=== PATIENT | female | born 1960 | race Caucasian/White ===

== ENCOUNTER 2024-12-02 06:10 | Day surgery (SDC) | payer OTHER, SELFPAY ==
[2024-11-19 13:58] VITALS: BMI 45.1
--- NOTE | 2024-12-01 06:34 | W.CON.GYNONC ---
Addendum entered and electronically signed by Mike Salinas MD 12/05/24 16:26:
Date of H&P: 12/02/2024
Original Note:
Consultation
-
Performing Provider: Mike Salinas
Reason for Consultation: Surgery H&P
Chief Complaint
-
endometrial hyperplasia
History of Present Illness
64�year�old�woman�referred�to�me�by�Dr.�Letty�Pacheco She�had�an�office�evaluation�March�1.�Patient�had�not�been�seen�for�3�years.�She�had�expressed�frustration�for�gaining�some
weight�back.�Pap�smear�performed�March�1�was�negative�cytology�and�negative�HPV.�Endometrial�biopsy�showed�no endometrial�tissue�identified�mucus�and�rare�fragments�of�endocervical�glands�present.�Ultrasound�of�the�pelvis�dated�Olamide�
shows�uterus�with�15�mm�thickness,�right�and�left�ovaries�are�2.1�and�2.4�cm.�There�is�no�free�fluid�or�pelvic�collection Patient�underwent�a�D&C�hysteroscopy�and�MyoSure�biopsy�Olamide�.�Pathology�is�consistent�with�endometrial�hyperplasia
without�atypia.�ECC�is�benign.�Endometrial�curetting�shows�benign�endometrium�epithelium. Medical�history�significant�for�anxiety�disorder�and�prediabetes,�additional�problems�include�hypertension,�morbid�obesity,�cyst�of
left�breast,�family�history�of�colonic�polyps�and�postmenopausal�bleeding Past�surgical�history�includes�left�breast�biopsy,�appendectomy,�history�of�umbilical�hernia�repair
Family�history�significant�for�mother�with�lung�cancer�at�67,�sister�with�MS,�maternal�aunt�with�breast�cancer Social�history,�she�is�,�has�2�children,�she�was�a�smoker�but�quit�about�1992,�drinks�alcohol�socially,�denies�drug�or
marijuana�use
Meds:
aspirin�81�mg�tablet 09/24/2024 0 1�p.o.�q.�day atorvastatin�10�mg�tablet 09/24/2024 0 1�p.o.�q.�day escitalopram�10�mg�tablet 09/24/2024 0 1�p.o.�q.�day lisinopril�10�mg�tablet 09/24/2024 0 1�p.o.�q.�day megestrol�40�mg�tablet 09/24/2024 0
1�p.o.�twice�a�day�(BID) metformin�500�mg�tablet 09/24/2024 0 1�p.o.�twice�a�day�(BID)
Medical History
Allergies
Allergies reflect when allergies were last updated in [facility].
doxycycline Allergy (Severe, Verified 11/25/24 09:40)
Rash
halothane Allergy (Severe, Verified 11/25/24 09:54)
HEPATITIS
misoprostol Allergy (Severe, Verified 11/25/24 09:40)
Hives
Sulfa (Sulfonamide Antibiotics) Allergy (Severe, Verified 11/25/24 09:40)
Rash
Physical Exam
Physical Exam
Pelvic�Examination: External�normal�labia,�urethra,�anus.� Vagina:�Normal�mucosa. Cervix:�normal�appearance,�no�discharge. Uterus:�normal�size.� Adnexa:�No�pelvic�mass.� RVE:�no�masses�or�nodularity
General:�Well�developed,�well�nourished�patient.�In�no�acute�distress. Neck:�No�thyromegaly.�No�cervical�lymphadenopathy. Lungs:�Clear�to�auscultation.�Good�air�movement�bilaterally. Cardiac:�Regular�rate.�Regular�rhythm.�No�murmurs�appreciated.
Abdomen:�Abdomen�is�soft.�Non�tender�to�palpation.�Non�distended.�umbilacal�hernia�repair�site Extremities:�No�edema. Hematologic/Lymphatic:�No�palpable�lymphadenopathy. Musculoskeletal:�Normal�range�of�motion.�Strength�and�Tone�are�normal.
Skin:Non�jaundiced.�No�petechia.�No�purpura. Neurologic:�Speech�is�fluent.�Normal�gait�and�station.�Cranial�nerves�intact
Results
-
�[facility]��
����������������������������������[place] [address]��
Patient:�Nick Dejesus���������������������MR#:�[id number]������������
:�1960������Age:�64���Sex:�F������������Visit�Number:�[id number]�����������
Admit�Date:�10/12/24���������������������Patient�Phone:�[phone]������������
Adm�Doctor:�Marilee Salinas������������������Ordered�By:�Marilee Salinas�����������
[facility]:�[facility]���������������������Report�#:�[id number]�����
[address]
[place] [address], ��
Study�#:�[id number]��
��
Category:�MRI��������������������������������������������������������Date�of�Service:�10/12/24��������
������������
Study�Performed:�MR�pelvis�wo/w�con�������������������������������������������������������������������
������������������
��
����������������������������������������REPORT�STATUS:�Signed��
MRI�PELVIS:��
��
HISTORY:�Postmenopausal�bleeding.�Thickened�endometrium�on�sonography.�N95.0��
��
COMPARISON:�Comparison�is�made�with�the�ultrasound�examination�of�Olamide�.��
��
Axial,�coronal�and�sagittal�imaging�was�performed�with�multiple�pulse�sequences.�Imaging�was�
performed�without�and�with�intravenous�administration�of�Clariscan,�20�cc.��
��
UTERUS:��
The�uterus�measures�7.8�cm�in�length,�4.6�cm�in�AP�dimension�and�5.3�cm�in�transverse�dimension.��
The�endometrium�measures�1.0�cm�in�thickness.�The�endometrium�demonstrates�heterogeneous�T1�and�T2�
signal.�Within�the�endometrium�there�is�a�1.4�cm�x�0.7�cm�region�of�relatively�decreased�T2�signal.�
The�endometrium�demonstrates�heterogeneous�enhancement�following�contrast�administration.��
The�myometrium�is�unremarkable�in�appearance.��
��
ADNEXA:��
The�right�ovary�measures�2.0�cm�x�1.6�cm�x�1.6�cm.��
The�left�ovary�measures�1.7�cm�x�1.4�cm�x�2.0�cm.��
The�ovaries�are�unremarkable�in�appearance.��
No�mass�is�seen�in�the�adnexa.�No�free�fluid�is�detected.��
��
LYMPH�NODES:���
No�lymphadenopathy�is�seen�in�the�mesentery�or�retroperitoneum.��
��
Skeletal:���
The�visualized�skeletal�structures�demonstrate�normal�marrow�signal.��
��
CONCLUSION:��
1.�The�endometrium�is�abnormally�thick�for�a�postmenopausal�patient.�Endometrium�measures�1.0�cm�in�
thickness.�The�endometrium�demonstrates�heterogeneous�attenuation�characteristics�and�heterogeneous�
enhancement.�This�raises�suspicion�for�endometrial�carcinoma.�Tissue�sampling�is�recommended.��
2.�The�ovaries�and�adnexa�are�unremarkable�in�appearance.�No�lymphadenopathy�or�free�fluid�is�
detected.��
��
�Act�112�notification:��
��
You�are�receiving�this�notice�as�a�result�of�a�determination�by�your�diagnostic�imaging�service�that
further�discussions�of�your�test�results�are�warranted�and�would�be�beneficial�to�you.��
The�complete�results�of�your�test�or�tests�have�been�or�will�be�sent�to�the�healthcare�practitioner�
that�ordered�the�test�or�tests.�It�is�recommended�that�you�contact�your�healthcare�practitioner�to�
discuss�your�results�as�soon�as�possible.��
��
��
��
��
��
��
Dictated�By:�Kirk�G�Pretty�MD�on�10/15/24�at�918
Comp. Metabolic Panel (14)�-FinalOrdered by:�Blas Field Source:�Blood
Glucose 130High mg/dL 70-99 [facility]
BUN 9 mg/dL 8-27 [facility]
Creat 0.66 mg/dL 0.57-1.00 [facility]
eGFR 98 mL/min/1.73 >59 [facility]
BUN Creat Ratio 14 12-28 [facility]
Sodium 139 mmol/L 134-144 [facility]
Potassium 4.5 mmol/L 3.5-5.2 [facility]
Chloride 102 mmol/L 96-106 [facility]
CO2 18Low mmol/L 20-29 [facility]
Calcium 9.8 mg/dL 8.7-10.3 [facility]
Total Protein 6.8 g/dL 6.0-8.5 [facility]
Albumin 4.5 g/dL 3.9-4.9 [facility]
Globulin 2.3 g/dL 1.5-4.5 [facility]
Total Bili 0.6 mg/dL 0.0-1.2 [facility]
Alk Phos 69 IU/L 44-121 [facility]
AST 16 IU/L 0-40 [facility]
ALT 21 IU/L 0-32 [facility]
Iron and TIBC�-FinalOrdered by:�Blas Field Source:�Blood
Iron Bind.Cap.(TIBC) 311 ug/dL 250-450 [facility]
UIBC 205 ug/dL 118-369 [facility]
IRON 106 ug/dL 27-139 [facility]
Iron Sat Percent 34 % 15-55 [facility]
Vitamin B12 and Folate�-FinalOrdered by:�Blas Field Source:�Blood
B12 361 pg/mL 232-1245 [facility]
Folate (Folic Acid), Serum >20.0 ng/mL >3.0 [facility]
A�serum�folate�concentration�of�less�than�3.1�ng/mL�is
considered�to�represent�clinical�deficiency.
Prothrombin Time (PT)�-FinalOrdered by:�Blas Field Source:�Blood
INR 1.0 0.9-1.2 [facility]
���������������Reference�interval�is�for�non-anticoagulated�patients.
��������������������������������������������������������������������.
���������������Suggested�INR�therapeutic�range�for�Vitamin�K
���������������antagonist�therapy:
������������������Standard�Dose�(moderate�intensity
���������������������������������therapeutic�range):�������2.0�-�3.0
������������������Higher�intensity�therapeutic�range�������2.5�-�3.5
ProTime 11.4 sec 9.1-12.0 [facility]
Cancer Antigen (CA) 125�-FinalOrdered by:�Blas Field Source:�Blood
CA125 17.4 U/mL 0.0-38.1 [facility]�Electrochemiluminescence�Immunoassay�(ECLIA)
���������������������������������������������������������������������.
Values�obtained�with�different�assay�methods�or�kits�cannot�be
used�interchangeably.��Results�cannot�be�interpreted�as�absolute
evidence�of�the�presence�or�absence�of�malignant�disease.
Luteinizing Hormone(LH)�-FinalOrdered by:�Blas Field Source:�Blood
LH 6.2Low mIU/mL 7.7-58.5 [facility]
������������������������������������Adult�Female��������������Range
�������������������������������������Follicular�phase������2.4�-��12.6
�������������������������������������Ovulation�phase������14.0�-��95.6
�������������������������������������Luteal�phase����������1.0�-��11.4
�������������������������������������Postmenopausal��������7.7�-��58.5
FSH�-FinalOrdered by:�Blas Field Source:�Blood
FSH 9.4Low mIU/mL 25.8-134.8 [facility]
������������������������������������Adult�Female�������������Range
�������������������������������������Follicular�phase������3.5�-��12.5
�������������������������������������Ovulation�phase�������4.7�-��21.5
�������������������������������������Luteal�phase����������1.7�-���7.7
�������������������������������������Postmenopausal�������25.8�-�134.8
PTT, Activated�-FinalOrdered by:�Blas Field Source:�Blood
aPTT 24 sec 24-33 [facility]
This�test�has�not�been�validated�for�monitoring�unfractionated�heparin
therapy.�aPTT-based�therapeutic�ranges�for�unfractionated�heparin
therapy�have�not�been�established.�For�general�guidelines�on
Heparin�monitoring,�refer�to�the�[facility]�Directory�of�Services.
TSH reflex to T4F�-FinalOrdered by:�Blas Field Source:�Blood
TSH 1.870 uIU/mL 0.450-4.500 [facility]
Ferritin�-FinalOrdered by:�Blas Field Source:�Blood
Ferritin 113 ng/mL 15-150 [facility]
Impression / Plan
-
This�patient�has�morbid�obesity,�due�to�excess�calories,�has�new�diagnosis�of�endometrial�hyperplasia�resulting�in�postmenopausal bleeding. She�had�a�prior�history�of�failed�endometrial�ablation�in�her�late�40s.
We�discussed�incidence�and�treatment�of�various�types�of�endometrial�hyperplasia. I�did�clarify�with�her�that�while�she�is�on�progestational�agents�she�does�not�need�frequent�endometrial�biopsies�and�probably�she
could�be�sampled�with�a�D&C�in�1�year.
Reviewed�results�of�MRI�with�patient�and�. Explained�the�procedure�of�robotic�assisted�laparoscopic�total�hysterectomy�with�BSO�and�possible�sentinel�lymph�node�biopsy
explained�risks�of�bleeding�infection,�injury�to�bowel�or�bladder,�cardiovascular�risks�and�blood�clots,�Reviewed�that�she�would�need to�see�primary�for�medical�clearance�and�she�did�just�see�her�this�week�but�will�contact�her�to�get�clearance
We�reviewed�the�Consent�and�answered�questions�and�consent�was�signed. we�will�look�for�a�date�in�[place]�and�discussed�that�the�surgery�would�be�done�at[facility]�
She�will�continue�her�diet�and�will�increase�her�walking�in�preparation�for�surgery. will�schedule�2�week�post�op�appointment�once�we�have�a�surgery�date.
[2024-12-02] VITALS (7 sets, daily range): BP systolic 109–146; BP diastolic 48–81; BMI 45.1
[2024-12-02] MEDS: NEURONTIN 300 MG PO (06:31)
[2024-12-02] MEDS: TYLENOL 1000 MG PO (06:31)
[2024-12-02] MEDS: HEPARIN 5000 UNITS SC (06:31)
[2024-12-02 06:50] LABS: Glucose - Point of Care 124 mg/dl (70-99)
[2024-12-02] MEDS: NORMOSOL-R/PLASMALYTE-A 1000 IV (06:57)
--- NOTE | 2024-12-02 06:59 | PTCARENOTE ---
Celebrex held due to sulfa allergy. Dr. Vinson aware.
--- NOTE | 2024-12-02 09:02 | W.IMMPOSTOP ---
Surgical Immed Post Op Note
-
Date: 12/02/2024
Primary Surgeon: Mike Salinas MD
Assisting Surgeon: Asif Bhardwaj PA-C
Pre-op Diagnosis: Endometrial Hyperplasia, Post menopausal bleeding
Post-op Diagnosis: Same
Procedure Performed:
Robotic assisted total laparoscopic hysterectomy, bilateral salpingo-oophorectomy, pelvic washings,
injection of cervix with ICG dye, bilateral, for mapping and identification of sentinel lymph nodes
Robotic assisted laparoscopic bilateral sentinel lymphadenectomy
Anesthesia Type: General Endotracheal , tap block
Specimen / Cultures: Uterus and cervix with bilateral tubes and ovaries, pelvic washings, right and left external iliac sentinel lymph nodes
Estimated Blood Loss: 50 cc
Complications: None
Operative Findings: In the upper abdomen liver spleen stomach omentum right and left diaphragms appear within normal limits. There is a band of filmy adhesion between a portion of the omentum and right lower quadrant abdominal wall. In the pelvis
uterus and cervix appear to be unremarkable with atrophic appearing tubes and ovaries. There is some white discolorations on the serosa of the uterus and some filmy adhesions in the posterior cul-de-sac adhering to right adnexa.
[2024-12-02 09:08] LABS: Glucose - Point of Care 149 mg/dl (70-99)
--- NOTE | 2024-12-02 09:09 | OR.RPT ---
Operative Report
Operative Report
Date: 12/02/2024
Primary Surgeon: Mike Salinas MD
Assisting Surgeon: Asif Bhardwaj PA-C
Pre-op Diagnosis: Endometrial Hyperplasia, Post menopausal bleeding
Post-op Diagnosis: Same
Procedure Performed:
Robotic assisted total laparoscopic hysterectomy, bilateral salpingo-oophorectomy, pelvic washings,
injection of cervix with ICG dye, bilateral, for mapping and identification of sentinel lymph nodes
Robotic assisted laparoscopic bilateral sentinel lymphadenectomy
Anesthesia Type: General Endotracheal , tap block
Specimen / Cultures: Uterus and cervix with bilateral tubes and ovaries, pelvic washings, right and left external iliac sentinel lymph nodes
Estimated Blood Loss: 50 cc
Complications: None
Operative Findings: In the upper abdomen liver spleen stomach omentum right and left diaphragms appear within normal limits. There is a band of filmy adhesion between a portion of the omentum and right lower quadrant abdominal wall. In the pelvis
uterus and cervix appear to be unremarkable with atrophic appearing tubes and ovaries. There is some white discolorations on the serosa of the uterus and some filmy adhesions in the posterior cul-de-sac adhering to right adnexa.
Procedure in detail: This patient was taken to the operating room for definitive management of endometrial hyperplasia, postmenopausal bleeding as well as abnormality demonstrated on MRI of the pelvis. She was placed in supine position, general
anesthesia was administered, she was intubated without any difficulty OG tube was placed she was placed in lithotomy position using yellowfin stirrups, arms were wrapped with foam and placed along the patient's side. She was prepped on the abdomen
perineum and vagina and upper thighs and draped. Timeout procedure was carried out and she received appropriate antibiotics. Kearney catheter was placed under sterile conditions to drain the bladder. Cervix was visualized after placement of a Torres
retractor and grasped on the anterior lip, cervical canal was dilated and uterine manipulator enrichment specialist type with 3.5 cm HERI ring was placed in the uterine cavity and around the cervix respectively. Prior to the insertion of the uterine
manipulator ICG dye was injected at 3 and 9:00 positions at 5 mm and 10 mm deep stations. Attention was turned abdominally where Veress needle was inserted just below left subcostal margin and pneumoperitoneum was created up to pressure of 15 mmHg.
8 mm XI robotic port was placed in the left upper quadrant and then under direct visualization other ports which were all 8 mm in size were placed in mid epigastric level right upper quadrant right and left lateral abdomen. Tap block was performed
with combination of ropivacaine and Decadron 2 fingerbreadths below the right and left subcostal margins laterally and then right and left mid abdomen laterally. The patient was placed in Trendelenburg and robotic system was docked. Washings were
collected in the pelvis and submitted to cytology. Then the omental adhesion to the right lower quadrant was taken down with electrocautery and good hemostasis was present. There was no injury to any adjacent organs. The right and left round
ligaments were sealed and divided, paravesical and pararectal spaces were developed the course of the ureter was visualized, a vascular window between IP ligament and ureter was opened, both IP ligaments were sealed 3 times and divided tubes and
ovaries were left attached to the uterus the right tube and ovary had adhesions to the cul-de-sac which were taken down. We used the firefly mode to identify external iliac sentinel lymph nodes approximately mid position along the external iliac
artery and right and left sides and these were removed and submitted to pathology. Bladder flap was sharply developed and advanced below the cervicovaginal junction. Uterine arteries were sealed 3 times and divided circumferential incision was
made over the HERI ring until the uterus was fully detached and the uterus and cervix with bilateral tubes and ovaries were removed through the vagina and submitted to pathology. Vaginal cuff was closed at both apices with 0 Vicryl suture ligature
in a [id number] fashion.. V-Loc suture was used to close the cuff starting from right to the left side and back to the right side. All pedicles were examined and good hemostasis was present pneumoperitoneum was released and robotic system was
undocked all ports were removed. The skin incision all port sites were closed with 4-0 Monocryl in a subcuticular fashion. I examined the vagina and there was no lacerations or bleeding in the vagina. Kearney catheter was removed. Patient was
extubated and placed in supine position and returned back to recovery room stable awake and extubated condition. Counts of laps instruments and needle was correct x 2. I was present and scrubbed for entire procedure as dictated above.
Disposition: To PACU, awake and stable
== END 2024-12-02 10:37 | disposition home or self-care (01) ==
LOC: SDS 06:10
PROVIDERS: ATTENDING PHYSICIAN Obstetrics & Gynecology Gynecologic Oncology; FAMILY PHYSICIAN Family Medicine
DX: N85.02 Endometrial intraepithelial neoplasia [EIN] (principal); N84.0 Polyp of corpus uteri; D25.9 Leiomyoma of uterus, unspecified; N83.292 Other ovarian cyst, left side; N83.291 Other ovarian cyst, right side; N95.0 Postmenopausal bleeding; N73.6 Female pelvic peritoneal adhesions (postinfective)
CPT/HCPCS: 58571; 38570; 38900; 36415; 82962; 86850; 86900; 86901; 88112; 88307; 88342; 93005